=== PATIENT | female | born 1995 | race Caucasian/White ===

== ENCOUNTER 2016-07-25 03:49 | Emergency (ER) | payer BC ==
[~2016-07-25] VITALS: Ht 157.5 cm; Wt 75.0 kg
[2016-07-25 03:55] VITALS: Ht 157.5 cm; Wt 75.0 kg
--- NOTE | 2016-07-25 04:04 | ERA ---
ER Documentation Chief Complaint Date/Time DATE: 07/25/16 TIME: 04:03 Chief Complaint Abdominal pain HPI The patient is a 21-year-old female, presenting with epigastric abdominal pain that began about 12 AM, associated with vomiting initially foot then mucus. She ate hot nachos with jalapeno last night. She denies fever, chills, neck pain, chest pain, dyspnea, dysuria, diarrhea, constipation. She does not smoke , drink Past medical/surgical history: None ROS All systems reviewed and are negative except as per history of present illness. Medications Home Meds Active Scripts Famotidine* (Pepcid*) 20 Mg Tablet, 20 MG PO BID for 7 Days, TAB Prov:CHRISTOPHER OATES MD 07/25/16 Ondansetron (Ondansetron Odt) 4 Mg Tab.rapdis, 4 MG PO Q6H Y for NAUSEA AND/OR VOMITING, #10 TAB Prov:CHRISTOPHER OATES MD 07/25/16 Allergies Allergies: Coded Allergies: No Known Allergy (Unverified , 07/25/16) Physical Exam Vitals Vital Signs Date Time Temp Pulse Resp B/P Pulse Ox O2 Delivery O2 Flow Rate FiO2 07/25/16 04:55 102 16 115/65 100 Room Air 07/25/16 03:55 100.3 114 20 128/78 100 Physical Exam Const: No acute distress. Head: Atraumatic. Eyes: Normal Conjunctiva. ENT: Normal External Ears, Nose and Mouth. Neck: Full range of motion. No meningismus. Resp: Clear to auscultation bilaterally. Cardio: Regular rate and rhythm, no murmurs. Abd: Soft, non distended, normal bowel sounds, mild epigastric tenderness, no right lower quadrant, right upper quadrant, CVA, rigidity, rebound tenderness Skin: No petechiae or rashes. Back: No midline or flank tenderness. Ext: No cyanosis, or edema. Neur: Awake and alert. No focal deficit Psych: Normal Mood and Affect. Result Diagram: 07/25/16 0425 07/25/16 0425 Results 24 hrs Laboratory Tests Test 07/25/16 04:25 07/25/16 05:39 White Blood Count 12.510^3/ul Red Blood Count 4.4910^6/ul Hemoglobin 13.4g/dl Hematocrit 39.3% Mean Corpuscular Volume 87.5fl Mean Corpuscular Hemoglobin 29.8pg Mean Corpuscular Hemoglobin Concent 34.1g/dl Red Cell Distribution Width 11.9% Platelet Count 60969^3/UL Mean Platelet Volume 9.0fl Neutrophils % 87.0% Band Neutrophils % 6.0% Lymphocytes % 4.0% Monocytes % 3.0% Neutrophils # 10.910^3/ul Lymphocytes # 0.510^3/ul Monocytes # 0.410^3/ul Sodium Level 140mmol/L Potassium Level 3.8mmol/L Chloride Level 105mmol/L Carbon Dioxide Level 23mmol/L Anion Gap 16 Blood Urea Nitrogen 14mg/dl Creatinine 0.66mg/dl Glucose Level 125mg/dl Calcium Level 9.3mg/dl Total Bilirubin 0.6mg/dl Direct Bilirubin 0.00mg/dl Indirect Bilirubin 0.6mg/dl Aspartate Amino Transf (AST/SGOT) 50IU/L Alanine Aminotransferase (ALT/SGPT) 49IU/L Alkaline Phosphatase 98IU/L Total Protein 9.5g/dl Albumin 4.7g/dl Globulin 4.80g/dl Albumin/Globulin Ratio 0.97 Lipase 56U/L Bedside Urine pH (LAB) 7.0 Bedside Urine Protein (LAB) Negative Bedside Urine Glucose (UA) Negative Bedside Urine Ketones (LAB) Negative Bedside Urine Blood 2+ Bedside Urine Nitrite (LAB) Negative Bedside Urine Leukocyte Esterase (L Negative Current Medications Medications (Trade) Dose Ordered Sig/Kassie Route PRN Reason Start Time Stop Time Status Last Admin Dose Admin Morphine Sulfate (morphine) 2 mg ONCE STAT IV 07/25/16 04:12 07/25/16 04:15 DC 07/25/16 04:24 Ondansetron HCl 4 mg 4 mg ONCE STAT IV 07/25/16 04:12 07/25/16 04:15 DC 07/25/16 04:23 Sodium Chloride 1,000 ml @ 1,000 mls/hr Q1H ONCE IV 07/25/16 04:30 07/25/16 05:29 DC 07/25/16 04:49 Sodium Chloride (NS) 1,000 ml @ 1,000 mls/hr Q1H ONCE IV 07/25/16 04:30 07/25/16 05:29 DC 07/25/16 04:49 Procedures/[facility] [place] [id number] Rad[facility] Main Line: [phone] DIAGNOSTIC IMAGING REPORT Patient: MOE SANCHEZ : 1995 Age: 21 Sex: F MR #: [id number] DOS: 07/25/16 0412 Ordering MD: CHRISTOPHER OATES MD Location: E/R Room/Bed: PROCEDURE: ULTRASOUND LIMITED ABDOMEN CLINICAL INDICATION: 21-year-old female with abdominal pain. TECHNIQUE: Multiple sonographic of the right upper quadrant of the abdomen were obtained. The images were reviewed on a PACS workstation. COMPARISON: None. FINDINGS: The pancreas is not well visualized secondary to overlying bowel gas. The liver displays normal echogenicity. The liver measures 16.4 cm in length. No evidence of intrahepatic biliary ductal dilatation is seen. The portal and hepatic veins are unremarkable. The gallbladder demonstrates no wall thickening, sludge, nor stones. No pericholecystic fluid is seen. The common bile duct measures 3.4 mm and is not dilated. The right kidney displays normal echogenicity. The right kidney measures 10.0 cm in maximal length. No caliectasis or hydronephrosis is seen. No free fluid is seen. IMPRESSION: Unremarkable right upper quadrant abdominal ultrasound. .Dani Zambrano MD, Date Time Electronically viewed and signed by .Dani Zambrano MD, on 07/25/2016 05:20 .M/ CC: CHRISTOPHER OATES MD MEDICAL MAKING DECISION: The patient is a 21-year-old female, presenting to the ER because of epigastric abdominal pain after eating nachos and jalapeno, acute dehydration. She was treated with 2 L normal saline, morphine4 mg IV for pain, Zofran 4 mg IV for nausea with good response. The differential diagnoses considered include but are not limited to cholelithiasis, cholecystitis, cystitis, pancreatitis, hepatitis, gastritis, peptic ulcer disease, gastric ulcer, appendicitis, diverticulitis, cholangitis, choledocholithiasis, partial small bowel obstruction. Departure Diagnosis: Primary Impression: Abdominal pain Additional Impression: Dehydration Condition: Good Comments She was discharged with Dario Waddell I discussed the findings with the patient. I advised the patient to follow-up with the primary physician in about 1-2 days, sooner if needed and return if any concern. The patient's blood pressure was elevated (>120/80) but appears stable without evidence of hypertension emergency or urgency. The patient was counseled about the risks of hypertension and urged to pursue outpatient monitoring and therapy within a week with their primary care physician. CHRISTOPHER OATES MD Jul 25, 2016 04:04
[2016-07-25] MEDS ORDERED: ONDANSETRON 4 MG INJ IV STA (04:12)
[2016-07-25] MEDS ORDERED: morphine 2 MG INJ IV STA (04:12)
[2016-07-25] MEDS ORDERED: SOD CHLORIDE 0.9% 1,000 ML IV ONE ×2 (04:30)
[2016-07-25 04:38] LABS: ADD SCAN DIFF NO
[2016-07-25 04:44] LABS: ABNORMAL IP MESSAGE 1; HEMATOCRIT 39.3 % (37.0-47.0); HEMOGLOBIN 13.4 g/dl (12.0-16.0); MEAN CORPUSCULAR HEMOGLOBIN 29.8 pg (29.0-33.0); MEAN CORPUSCULAR HGB CONC 34.1 g/dl (32.0-37.0); MEAN CORPUSCULAR VOLUME 87.5 fl (72.0-104.0); PLATELET COUNT 232 10^3/UL (140-415); RED BLOOD COUNT 4.49 10^6/ul (4.20-5.40); RED CELL DISTRIBUTION WIDTH 11.9 % (11.5-14.5); WHITE BLOOD COUNT 12.5 10^3/ul (4.8-10.8)
[2016-07-25 04:49] LABS: ALBUMIN 4.7 g/dl (3.3-4.9)
[2016-07-25 04:50] LABS: POTASSIUM 3.8 mmol/L (3.5-5.1)
[2016-07-25 04:52] LABS: BILIRUBIN,INDIRECT 0.6 mg/dl (0-1.1); BILIRUBIN,TOTAL 0.6 mg/dl (0.2-1.3); CREATININE 0.66 mg/dl (0.44-1.00)
[2016-07-25 04:53] LABS: ALBUMIN/GLOBULIN RATIO 0.97; CALCIUM 9.3 mg/dl (8.4-10.2); TOTAL PROTEIN 9.5 g/dl (6.1-8.1)
--- NOTE | 2016-07-25 05:20 | RADRPT ---
PROCEDURE: ULTRASOUND LIMITED ABDOMEN CLINICAL INDICATION: 21-year-old female with abdominal pain. TECHNIQUE: Multiple sonographic of the right upper quadrant of the abdomen were obtained. The imag es were reviewed on a PACS workstation. COMPARISON: None. FINDINGS: The pancreas is not well visualized secondary to overlying bowel gas. The liver displays normal echogenicity. The liver measures 16.4 cm in length. No evidence of intrah epatic biliary ductal dilatation is seen. The portal and hepatic veins are unremarkable. The gallbladder demonstrates no wall thickening, sludge, nor stones. No pericholecystic fluid is see n. The common bile duct measures 3.4 mm and is not dilated. The right kidney displays normal echogenicity. The right kidney measures 10.0 cm in maximal length. No caliectasis or hydronephrosis is seen. No free fluid is seen. IMPRESSION: Unremarkable right upper quadrant abdominal ultrasound. .Dani Zambrano MD, MD Date Time Electronically viewed and signed by .Dani Zambrano MD, on 07/25/2016 05:20 .M/
[2016-07-25 05:28] LABS: LYMPHOCYTES # 0.5 10^3/ul (0.8-2.9); MONOCYTE # 0.4 10^3/ul (0.3-0.9); NEUTROPHIL # 10.9 10^3/ul (1.6-7.5)
[2016-07-25 05:40] LABS: URINE BLOOD (Dip) POC 2+ (NEGATIVE)
[2016-07-25] MEDS ORDERED: ONDA4TAB14 PO (05:44)
[2016-07-25] MEDS ORDERED: FAMO-18 PO (05:44)
[2016-07-25 06:37] VITALS: BP 116/77; PULSE 88; RESP 16; TEMP 98.6
== END 2016-07-25 07:36 | disposition home or self-care (01) ==
LOC: E/R 03:49
DX: R10.13 Epigastric pain (principal); E86.0 Dehydration; R11.10 Vomiting, unspecified; R40.2142 Coma scale, eyes open, spontaneous, at arrival to emergency department; R40.2362 Coma scale, best motor response, obeys commands, at arrival to emergency department; R40.2252 Coma scale, best verbal response, oriented, at arrival to emergency department
CPT/HCPCS: 76705; 80053; 81003; 83690; 85025; J2270; J2405; J7030; 36415; 96361; 96374; 96375

== ENCOUNTER 2017-06-04 18:44 | Emergency (ER) | END 2017-06-04 22:49 | disposition home or self-care (01) ==